=== PATIENT | female | born 1975 | race Asian ===

== ENCOUNTER 2016-03-09 15:28 | Outpatient (CLI) | payer OTHER ==
[~2016-03-09] VITALS: Ht 170.2 cm; Wt 88.0 kg
[2016-03-09 15:51] VITALS: BP 117/65
[2016-03-09] MEDS ORDERED: PRENTAB9 PO (16:00)
--- NOTE | 2016-03-09 17:56 | HPE ---
DATE OF ADMISSION: 03/09/2016 41-year-old 7, para 6, last menstrual period (LMP) 06/03/2015, estimated date of confinement (EDC) 03/09/2016, is at 40 weeks of gestation, came in saying she is having contractions and a bit of show after having her membranes stripped a few hours ago. Her risk factors is she is advanced maternal age (AMA), a grand multiparous and she has a previous loop electrocautery excision procedure (LEEP) cone of her cervix. PAST HISTORY: In 1997, 40 weeks, spontaneous vaginal delivery, 8 pounds 1 ounce. In 1998, 40 weeks, spontaneous vaginal delivery, 8 pounds 12 ounces. In 2000, at 40 weeks, spontaneous vaginal delivery, 8 pounds. In 2004, at 40 weeks, spontaneous vaginal delivery, 8 pounds 5 ounces. In 2005, at 40 weeks, spontaneous vaginal delivery, 8 pounds 1 ounce. In 2009, at 38 weeks, spontaneous vaginal delivery, 7 pounds 7 ounces. Labs show she is B+, HIV negative, hepatitis negative, RPR negative, rubella immune, varicella by history. Pap smear showed mild dysplasia with HPV negative. Urine was no growth. Gonorrhea and chlamydia were negative. 1-hour glucose 160. She had a 3-hour GTT in which fasting was 134, 1-hour 173, 2-hour 176, and 3-hour 79. She is GBS negative. Blood pressure 117/65, respirations are 18, pulse 105, temperature is 98.3. Urine is 1.020, pH 6, trace of protein, 3+ blood. She is in no acute distress, phong every 7-9 minutes, mild in intensity. Category one strip. No vaginal bleeding or loss, 1-2 cm, posterior, thick, -3 station and some old show. In summary we have a term gestation with uterine irritability secondary to membrane stripping. Our plan of management is to follow her and in about an hour, recheck and see if there is any change in her cervix or in her contraction pattern. If not, she will be counseled regarding premature rupture of membranes (PROM), labor, bleeding and when to call the provider.
[2016-03-09 18:29] VITALS: BP 120/65
== END 2016-03-09 21:09 | disposition home or self-care (01) ==
LOC: M LDO 15:28
PROVIDERS: ATTEND Obstetrics & Gynecology
DX: O47.1 False labor at or after 37 completed weeks of gestation (principal); O09.513 Supervision of elderly primigravida, third trimester; Z3A.40 40 weeks gestation of pregnancy

== ENCOUNTER 2016-03-16 14:47 | Inpatient (IN) | payer OTHER ==
[~2016-03-16] VITALS: Ht 170.2 cm; Wt 88.0 kg
[2016-03-16] VITALS (37 sets, daily range): BP systolic 104–214; BP diastolic 58–172
[~2016-03-16 14:47] MED LIST: PRENTAB9 PO
[2016-03-16] MEDS ORDERED: LR 1,000 ML IV SCH (16:24)
[2016-03-16] MEDS ORDERED: OXYTOCIN DRIP 30 UNITS in APPROPRIATE DILUENT 1 EA IV SCH (16:30)
--- NOTE | 2016-03-16 17:01 | HPE ---
DATE OF ADMISSION: 03/16/2016 This lady is a 41-year-old 7, para 6, last period 06/03/2015, estimated date of confinement (EDC) 03/09/2016 at 41 weeks of gestation with history of oligohydramnios and contractions. Risk factor is she has an advanced maternal age (AMA), oligohydramnios. Had a loop electrosurgical excision procedure (LEEP) in 2016 for RAJNI II. PAST HISTORY: In 1997, 40 weeks vaginal delivery, 8-pound 1-ounce female, local installation. In 1998, 40 weeks vaginal delivery, 8-pound 12-ounce male, local installation. In 2000, 40 weeks vaginal delivery 8-pound female, local installation. In 2004, 40 weeks vaginal delivery, 8-pounds 6-ounce male, local installation. In 2005, 40 weeks vaginal delivery, 8-pound female, local instillation. In 2009 at 38 weeks, vaginal delivery, 7-pound 7-ounces male, local installation. Labs show B positive, HIV negative, hepatitis negative, RPR negative, rubella immune. Varicella immune. Pap shows HPV RAJNI I. Urine negative. Gonorrhea and chlamydia are negative. One-hour glucose was 160. Three-hour glucose fasting 134. One-hour 173. Two-hour 176, and 3-hour was 77. Group B streptococcus (GBS) negative. On examination she is quite distressed with emotions. Symphysis fundus height is 40, vertex OA 2-3 cm, 100% percent effaced, -2 station with bulging membranes. Category 1 strip. She is normocephalic, atraumatic. Neck: Full range of motions. Pupils equal and reactive to light. Chest is clear bilaterally to bases. Distal pulses symmetric. No evidence of deep vein thrombosis (DVT), pulmonary embolism (PE), or superficial phlebitis. No costovertebral angle (CVA) tenderness. Symphysis fundus height is appropriate. Four-quadrant bowel sounds are noted. She has no rashes, lesions, or pruritus. No arthralgia, myalgia. No complaints of cough, wheezes, shortness of breath, or dyspnea on exertion. No chest pain. She is not bleeding. Neurologic complete. No incontinency or frequency. No nausea, vomiting, diarrhea, or constipation. Her gynecologic issues are her abnormal Pap smear. She had a LEEP in 2016. No dysplasia was noted. Pap showed HPV RAJNI 1. SURGICAL HISTORY: [place] teeth. FAMILY HISTORY: Noncontributory. SOCIAL HISTORY: She does not smoke, drink, or abuse drugs. She is . There is no domestic violence. In summary, we have a term gestation, active labor with oligohydramnios on ultrasound. We plan to hydrate, augment if needed. Epidural on an as needed basis. We discussed the risks and benefits of induction of labor because of her oligohydramnios. The patient and expressed understanding, 25-minute discussion, and we will plan on and anticipate a vaginal delivery.
[2016-03-16 17:35] LABS: MEAN CORPUSCULAR HEMOGLOBIN 28.9 pg (27.0-33.0); MEAN CORPUSCULAR HGB CONC 33.2 g/dl (32.0-36.5); MEAN CORPUSCULAR VOLUME 87.2 fl (80.0-96.0); RED CELL DISTRIBUTION WIDTH 13.2 % (11.5-14.5); WHITE BLOOD COUNT 10.5 K/mm3 (4.0-10.0)
[2016-03-16] MEDS ORDERED: FENTANYL 2MCG/ML ROPIVACAINE 0.2% NACL 250 ML CADD As Ordered ONE (18:08)
[2016-03-16] MEDS ORDERED: diphenhydrAMINE INJ 50MG/ML VIAL (J1200) IV PRN (19:15)
[2016-03-16] MEDS ORDERED: FENTANYL/ROPIVACAINE/NACL CADD 250 ML EPIDURAL SCH (19:15)
[2016-03-16] MEDS ORDERED: EPIDURAL/PCA KEYS XX PRN (19:15)
[2016-03-16] MEDS ORDERED: NALOXONE INJ 0.4 MG/1 ML VIAL (J2310) IV PRN (19:15)
[2016-03-16] MEDS ORDERED: REFRIGERATOR IV KEYS XX PRN (19:15)
[2016-03-16] MEDS ORDERED: ePHEDrine SULFATE 25 MG/5 ML(5MG/ML) SYRINGE IV PRN (19:15)
[2016-03-16] MEDS ORDERED: ONDANSETRON 4MG/2ML VIAL (J2405) IV PRN (19:15)
[2016-03-16] MEDS ORDERED: EPIDURAL COMMENT XX SCH (19:15)
[2016-03-16] MEDS ORDERED: LACTATED RINGER'S 1000 ML IV PRN (19:15)
[2016-03-17] VITALS (9 sets, daily range): BP systolic 112–141; BP diastolic 58–77
[2016-03-17 00:48] LABS: CORD GAS ABE V -1.3; CORD GAS HCO3 V 23.5 MEQ/L; CORD GAS PCO2 V 40.1 mmHg; CORD GAS PH V 7.386 UNITS; CORD GAS TCO2 V 24.7 MEQ/L
[2016-03-17 00:49] LABS: CORD GAS O2 SAT V 74.3 %; CORD GAS SBC V 22.8 MEQ/L
[2016-03-17 00:51] LABS: CORD GAS ABE A -1.2; CORD GAS HCO3 A 24.5 MEQ/L; CORD GAS O2 SAT A 67.1 %; CORD GAS PCO2 A 44.4 mmHg; CORD GAS PH A 7.36 UNITS; CORD GAS PO2 A 28.8 mmHg; CORD GAS SBC A 22.7 MEQ/L; CORD GAS TCO2 A 25.9 MEQ/L
[2016-03-17] MEDS ORDERED: ACETAMINOPHEN 500 MG TAB PO PRN (01:15)
[2016-03-17] MEDS ORDERED: DIBUCAINE 1% OINTMENT 30GM TOP PRN (01:15)
[2016-03-17] MEDS ORDERED: METHYLERGONOVINE MALEATE 0.2 MG TAB PO PRN (01:15)
[2016-03-17] MEDS ORDERED: MOM 30ML SUSPENSION UDC PO PRN (01:15)
[2016-03-17] MEDS ORDERED: DOCUSATE SODIUM 100 MG CAP PO PRN (01:15)
[2016-03-17] MEDS ORDERED: ANUSOL HC CREAM 30GM TOP PRN (01:15)
[2016-03-17] MEDS ORDERED: MEASLES,MUMPS,RUBELLA VACCINE INJ (MMR-II) (90707) SC SCH (01:15)
[2016-03-17] MEDS ORDERED: RHOGAM 300 MCG (1500 IU) INJ (J2790) IM SCH (01:15)
[2016-03-17] MEDS: IBUPROFEN 800 MG TAB PO PRN ×3 (04:37→22:36)
--- NOTE | 2016-03-17 07:00 | IPN ---
DATE: 03/16/2016 This lady and requested circumcision of their male . After discussing risks and benefits of circumcision, the medical and nonmedical indications, the penile block and aftercare, and expressed understanding of both, signed and witnessed the consent form. We await clearance by the bag loader.
--- NOTE | 2016-03-17 11:04 | DN ---
DATE: 03/17/2016 This lady is a 7, para 6 admitted because of oligohydramnios 41 weeks of gestation. She was actually having contractions. She had an epidural in place. Had an attempted AROM but there was no Liqui noted. Eventually at full dilatation after augmentation with Pitocin, delivered a live male weighing 10 pounds, 4528 grams. of 9 and 9 at 1 and 5 minutes respectively. Arterial and venous pH was performed. Cord was around neck times one, loose. At the imminent prior to delivery. She ruptured an internal hemorrhoid and had significant amount of bleeding from that. We tamponade that for the present time. Placenta delivered spontaneously after three-vessel cord membranes and tissues intact. Uterus contracted well under Pitocin. She had a small vascularity at the introitus which was oversewn with [id number] with 2-0 Vicryl J339. The internal hemorrhoid tamponade had worked in that she had minimal bleeding from same. The patient and baby tolerating procedure well.
[2016-03-17] MEDS: PRENATAL VITAMIN TAB PO SCH (11:10)
--- NOTE | 2016-03-17 11:30 | IPN ---
DATE: 03/17/2016 This lady is a 41-year-old 7 now para 7, has history of being an AMA grand multip, oligohydramnios and ruptured hemorrhoid at delivery. She had a spontaneous vaginal delivery live male infant 10 pounds 0 ounces, 4528 grams, scores 9 and 9 at one and five minutes, respectively. Arterial pH 7.36, base excess -1.2, venous pH 7.38, base excess -1.3. Her admitting hemoglobin was 12.3, hematocrit 37.2 and platelets are 272. Her vital signs blood pressure 115/58, respirations 18, pulse 75, temperature 97.8. We discussed phlebitis, cystitis, mastitis, endometritis and cellulitis, diet, exercise, pain management, perineal, breast and wound care. She is planning on having natural family planning. Does not require any control. She will have a 6-week checkup and is planning on discharge tomorrow. We plan to circumcise her little boy today sometime after medical clearance by the substation inspector.
[2016-03-18 06:14] VITALS: BP 108/61
[2016-03-18 07:02] LABS: MEAN CORPUSCULAR HEMOGLOBIN 28.9 pg (27.0-33.0); MEAN CORPUSCULAR VOLUME 87.5 fl (80.0-96.0); RED CELL DISTRIBUTION WIDTH 13.3 % (11.5-14.5); WHITE BLOOD COUNT 9.6 K/mm3 (4.0-10.0)
[2016-03-18] MEDS: PRENATAL VITAMIN TAB PO SCH (07:49)
[2016-03-18] MEDS: IBUPROFEN 800 MG TAB PO PRN (07:51)
--- NOTE | 2016-03-18 10:56 | IPNPDOC ---
Text Note Date of Service The patient was seen on 03/18/16 at 10:54. NOTE Belen is a 41yo doing well on PPD 1 s/p uncomplicated . She is and bottlefeeding. Lochia normal, spontaneously voiding and ambulating without difficulty. Tolerating regular diet. Denies f/c/n/v/SOB/CP/NGUYEN /abdominal pain. Vitals wnl, afebrile Exam: General: WDWN, NAD, resting comfortably Cardiac: S1S2 present, no murmur Lungs: CTAB without wheeze/crackles Abdomen: soft, NTTP, fundus firm u-2cm Extremities: no tenderness of calves bilaterally Assessment: Belen is a 41yo doing well on PPD 1 s/p uncomplicated . Meeting all milestones. No e/o infection, hemodynamically stable. Plan: -discharge to home with routine follow-up for 6wk PP visit -home meds already given from clinic stock -natural family planning for contraception Dr. Cortney Préez MD [place] ARNOLDO VS,Kallie, I+O VS, Kallie, I+O Laboratory Tests 03/18/16 06:46 Red Blood Count 3.31 L, Mean Corpuscular Volume 87.5, Mean Corpuscular Hemoglobin 28.9, Mean Corpuscular Hemoglobin Concent 33.0, Red Cell Distribution Width 13.3 Vital Signs Date Time Temp Pulse Resp B/P Pulse Ox O2 Delivery O2 Flow Rate FiO2 03/18/16 06:14 97.4 85 18 108/61 98 Room Air CORTNEY PÉREZ MD Mar 18, 2016 10:56
[2016-03-18] MEDS ORDERED: DIBU1OIN TOP (11:29)
[2016-03-18] MEDS ORDERED: IBUP-1114 PO (11:29)
[2016-03-18] MEDS ORDERED: ACET50TA PO (11:29)
[2016-03-18] MEDS ORDERED: COLA100C PO (11:29)
== END 2016-03-18 12:30 | disposition home or self-care (01) | DRG 775 ==
LOC: M LDI 14:47 → M OBS 03-17 02:49
PROVIDERS: ADMIT Obstetrics & Gynecology; ATTEND Obstetrics & Gynecology
PROC: 10E0XZZ Delivery of Products of Conception, External Approach (ICD-10-PCS; principal; 2016-03-17)
DX: O41.03X0 Oligohydramnios, third trimester, not applicable or unspecified (principal); O22.43 Hemorrhoids in pregnancy, third trimester; Z3A.41 41 weeks gestation of pregnancy; O69.81X0 Labor and delivery complicated by cord around neck, without compression, not applicable or unspecified; O48.0 Post-term pregnancy; Z37.0 Single live birth

== ENCOUNTER → 2016-03-25 | Day surgery (SDC) | payer OTHER ==
[~2016-03-25] MED LIST changes: +ACET50TA PO; +COLA100C PO; +DIBU1OIN TOP; +IBUP-1114 PO
== END ==
LOC: M SDC 11:46
PROVIDERS: ATTEND Anesthesiology
DX: T88.59XA Other complications of anesthesia, initial encounter (principal); Z53.09 Procedure and treatment not carried out because of other contraindication

== ENCOUNTER 2017-05-31 16:05 | Emergency (ER) | payer OTHER ==
[2017-05-31 20:30] LABS: BASO % 0.3 % (0.0-1.0); EOS # 0.1 10^3/uL (0.0-0.50); EOS % 1.1 % (0.0-3.0); HEMATOCRIT 40.9 % (36.0-47.0); HEMOGLOBIN 13.2 g/dl (12.0-15.5); IMMATURE GRANULOCYTE % 0.3 % (0-3.0); LYMPH # 4.1 10^3/uL (1.5-4.5); LYMPH % 32.3 % (24.0-44.0); MEAN CORPUSCULAR HEMOGLOBIN 28.9 pg (27.0-33.0); MEAN CORPUSCULAR HGB CONC 32.3 g/dl (32.0-36.5); MEAN CORPUSCULAR VOLUME 89.7 fl (80.0-96.0); MONO # 0.7 10^3/uL (0.0-0.8); MONO % 5.8 % (0.0-5.0); NEUTROPHILS # 7.5 10^3/uL (1.8-7.7); NEUTROPHILS % 60.2 % (36.0-66.0); PLATELET COUNT, AUTOMATED 306 10^3/uL (150-450); RED BLOOD COUNT 4.56 10^6/uL (4.00-5.40); RED CELL DISTRIBUTION WIDTH 12.1 % (11.5-14.5); WHITE BLOOD COUNT 12.5 10^3/uL (4.0-10.0)
[2017-05-31] MEDS: GASTROGRAFIN SOLUTION 30ML PO ×2 (20:30→21:00)
[2017-05-31 20:50] LABS: INR 0.87; PROTHROMBIN TIME 11.9 SECONDS (12.4-14.5)
[2017-05-31 20:51] LABS: PARTIAL THROMBOPLASTIN TIME 34.9 SECONDS (26.8-37.9)
[2017-05-31 21:02] LABS: ALBUMIN 4.1 GM/DL (3.2-5.2); ALBUMIN/GLOBULIN RATIO 1.14 (1.00-1.93); ALKALINE PHOSPHATASE 92 U/L (45-117); ALT/SGPT 24 U/L (12-78); ANION GAP 7 MEQ/L (8-16); AST/SGOT 16 U/L (7-37); BILIRUBIN,DIRECT < 0.1 MG/DL (0.0-0.2); BILIRUBIN,TOTAL 0.3 MG/DL (0.2-1.0); BLOOD UREA NITROGEN 12 MG/DL (7-18); CALCIUM LEVEL 8.8 MG/DL (8.5-10.1); CARBON DIOXIDE LEVEL 26 MEQ/L (21-32); CHLORIDE LEVEL 108 MEQ/L (98-107); CREATININE FOR GFR 0.59 MG/DL (0.55-1.30); GLOMERULAR FILTRATION RATE > 60.0 (>58); GLUCOSE, FASTING 77 MG/DL (70-100); POTASSIUM SERUM 3.8 MEQ/L (3.5-5.1); SODIUM LEVEL 141 MEQ/L (136-145); TOTAL PROTEIN 7.7 GM/DL (6.4-8.2)
[2017-05-31] MEDS ORDERED: ISOVUE-370 76% 100ML VIAL (Q9967) As Ordered (22:01)
== END 2017-05-31 23:16 | disposition home or self-care (01) ==
LOC: M ED 16:05
DX: K92.1 Melena (principal); N83.292 Other ovarian cyst, left side; G43.909 Migraine, unspecified, not intractable, without status migrainosus; M54.9 Dorsalgia, unspecified
CPT/HCPCS: Q9963

== ENCOUNTER 2017-06-24 09:31 | Day surgery (SDC) | payer OTHER ==
[2017-06-24] MEDS: NS 1,000 ML IV (09:30)
[~2017-06-24 09:31] MED LIST changes: -ACET50TA PO; -COLA100C PO; -DIBU1OIN TOP; -IBUP-1114 PO; +LIDOCAINE 2% INJ 100 MG/5 ML SDV (FOR ANES.) As Ordered; -PRENTAB9 PO; +PROPOFOL 200 MG/20 ML VIAL As Ordered
== END 2017-06-24 11:34 | disposition home or self-care (01) ==
LOC: M OPP 09:31
DX: K92.1 Melena (principal); D12.0 Benign neoplasm of cecum; K64.8 Other hemorrhoids; K21.9 Gastro-esophageal reflux disease without esophagitis; M54.89 Other dorsalgia; G43.909 Migraine, unspecified, not intractable, without status migrainosus; R06.83 Snoring
CPT/HCPCS: 45385